=== PATIENT | female | born 1945 | race Asian ===

== ENCOUNTER 2020-10-04 08:52 | Outpatient (CLI) | payer MEDICARE, SELFPAY ==
--- NOTE | ~2020-10-04 | MM_ITS ---
EXAMINATION: MM screening estee BI w lawrence HISTORY: Screening TECHNIQUE: Craniocaudal and mediolateral oblique 3-D tomosynthesis images were obtained and synthetic 2-D images were generated. CAD analysis was submitted and interpreted. COMPARISON: Comparison to multiple prior studies sequentially, with oldest reviewed study dated 04/19. BREAST PARENCHYMAL COMPOSITION: There are scattered areas of fibroglandular density. FINDINGS: Tissue marker present in the upper medial aspect of the right breast consistent with interv al biopsy. There is no evidence of suspicious mass, calcification, or architectural distortion to sug gest malignancy in either breast. There has been no suspicious interval change. IMPRESSION: 1. No mammographic evidence of malignancy. 2. Recommend routine screening mammography in one year. BI-RADS Category 2: Benign finding(s). Reviewed, dictated and finalized at location A. TENDER
== END 2020-10-04 08:53 | disposition home or self-care (01) ==
LOC: ANHIMG 09:03
PROVIDERS: PCP Emergency Medicine; Visit Provider Emergency Medicine
DX: Z12.31 Encounter for screening mammogram for malignant neoplasm of breast (principal)
CPT/HCPCS: 77063; 77067

== ENCOUNTER → 2022-02-18 12:27 | Outpatient (CLI) | payer MEDICARE, SELFPAY ==
--- NOTE | ~2022-02-18 | XR_ITS ---
EXAMINATION: XR hip BI 2V w AP pelvis DATE: 02/18/2022 12:49 INDICATION: Bilateral hip pain TECHNIQUE: AP view the pelvis and two views of each hip were obtained. COMPARISON: None. FINDINGS: Bone alignment is normal. There is no fracture. There is mild osteoarthritis of the hips. S urgical changes are noted in the rectum. IMPRESSION: 1. Mild osteoarthritis. Reviewed, dictated and finalized at location B. IMPRESSION: 1. Mild osteoarthritis.
== END ==
PROVIDERS: PCP Emergency Medicine; Visit Provider Emergency Medicine
DX: M16.0 Bilateral primary osteoarthritis of hip (principal)
CPT/HCPCS: 73521

== ENCOUNTER 2023-02-19 00:25 | Day surgery (SDC) | payer MEDICARE, SELFPAY ==
[2023-02-05 15:05] VITALS: BMI 24.0
[2023-02-19 10:21] VITALS: BP 139/86; PULSE 86; RESP 18; TEMP 36.4; O2SAT 99; BMI 23.4
[2023-02-19] MEDS: LACTATED RINGERS 1,000 ML 150 ML IV CONT (10:33)
--- NOTE | 2023-02-19 10:43 | WPDANESEPPF ---
Anes - Initial Pre Proc Eval Procedure: Operation Date: 02/19/23 11:30 Proposed Procedures p Colonoscopy - Too Rudd MD Date/Time: 02/19/23 10:43 Surgeon: Too Rudd MD Pre Op Diagnosis: IBS-diarrhea Patient Data Age: 77 Gender: F Height: 1.57 m Weight: 58.2 kg Last Vital Signs Temp 97.5 F L 02/19/23 10:21 Pulse 86 02/19/23 10:21 Resp 18 02/19/23 10:21 BP 139/86 02/19/23 10:21 Pulse Ox 99 02/19/23 10:21 O2 Del Method Room Air 02/19/23 10:21 Allergies Allergy/AdvReac Type Severity Reaction Status Date / Time No Known Drug Allergies Allergy Unknown Other Verified 02/19/23 10:20 Home Medications Medication Instructions Recorded Confirmed Type ergocalciferol (vitamin D2) 1,250 1,250 mcg PO WEEKLY 02/05/23 02/19/23 History mcg (50,000 unit) capsule losartan 100 mg tablet 100 mg PO DAILY 02/05/23 02/19/23 History simvastatin 10 mg tablet 10 mg PO DAILY 02/05/23 02/19/23 History Patient hx anesthesia problems: none Family hx anesthesia problems: none Results Review: All pre-operative results and documents have been reviewed as part of the pre-operative evaluation. [facility] Social History Social History Living arrangements: alone Anes - Eval Final PreProcedure Day of Procedure 02/19/23 10:43 Patient weight: normal Heart: regular rate and rhythm Lungs: clear to auscultation Airway: Mallampati scale class II Neurological: alert and oriented Last oral intake: >/= 8 hours ASA classification: III Emergent: no Anesthetic plan: proceed Anesthesia type and monitoring: general GIVS and standard monitoring Results Review: All pre-operative results and documents have been reviewed as part of the pre-operative evaluation. Informed Consent: The patient's anesthetic plan and its attendant risks and benefits were discussed with the patient/family/POA. Questions were solicited and answers provided to the satisfaction of the patient/family/POA.
--- NOTE | 2023-02-19 11:31 | PM.HPGS ---
History of Present Illness History of Present Illness Consent: Risks, benefits, and alternatives have been discussed and questions answered. Patient agrees to proceed with procedure. Chief complaint: IBS-diarrhea Narrative: Skyler Tao is a 77 year old female with rectal cance in 1994 s/p surgery, last colonoscopy 3 years ago. She has ibs-d but not taking any medication and recently better. Review of Systems Constitutional: Constitutional: Denies headache(s) and Denies weakness Eyes: Eyes: Denies blurry vision ENT: Reports Normal hearing present, Denies headache(s) and Denies neck pain Cardiovascular: Cardiovascular: Denies chest pain and Denies dyspnea Respiratory: Respiratory: Denies dyspnea Gastrointestinal: Gastrointestinal: Reports no additional gastrointestinal complaints Genitourinary: Genitourinary: Denies dysuria Musculoskeletal: Musculoskeletal: Denies neck pain Integumentary/Breasts: Skin/Breast: Denies dry skin Neurologic: Reports Normal hearing present, Denies headache(s) and Denies weakness Psychiatric: Psychiatric: Denies anxiety Endocrine: Endocrine: Denies change in body appearance Hematologic/Lymphatic: Hematologic/Lymphatic: Denies easy bleeding Allergic/Immunologic: Allergic/Immunologic: Denies urticaria PMFSH Past Medical History Medical History (Updated 02/19/23 @ 11:33 by Too Rudd MD) History of rectal cancer Irritable bowel syndrome with diarrhea Social History Social History Living arrangements: alone Meds Home Medications and Allergies Home Medications Medication Instructions Recorded Confirmed Type ergocalciferol (vitamin D2) 1,250 1,250 mcg PO WEEKLY 02/05/23 02/19/23 History mcg (50,000 unit) capsule losartan 100 mg tablet 100 mg PO DAILY 02/05/23 02/19/23 History simvastatin 10 mg tablet 10 mg PO DAILY 02/05/23 02/19/23 History Allergies Allergy/AdvReac Type Severity Reaction Status Date / Time No Known Drug Allergies Allergy Unknown Other Verified 02/19/23 10:20 Vital Signs Vital Signs - 24 hr 02/19/23 10:21 Temperature 97.5 F L Pulse Rate 86 Respiratory Rate 18 Blood Pressure 139/86 Pulse Oximetry 99 Oxygen Delivery Room Air Exam Const: General: comfortable and no acute distress HENMT: Face/Nose/Sinus: Normal nares present Eyes: General: appearance normal, both eyes and all related structures Neck: Neck: no JVD Resp: Auscultation: clear to auscultation bilaterally Cardio: Rate: regular rate Rhythm: regular rhythm GI: Inspection: non-distended GI Palp: Yes Soft to palpation Skin: General skin exam: normal color Neuro: General: gait normal Speech: normal speech Extrem: General: normal to inspection Psych: Mental Status: mental status grossly normal Assessment and Plan Assessment and plan (1) Irritable bowel syndrome with diarrhea: Code(s): K58.0 - Irritable bowel syndrome with diarrhea Status: Acute Assessment and Plan: colonoscopy (2) History of rectal cancer: Code(s): Z85.048 - Personal history of other malignant neoplasm of rectum, rectosigmoid junction, and anus Status: Acute
[2023-02-19 11:48] VITALS: BP 100/60; PULSE 65; RESP 21; O2SAT 98
[2023-02-19 11:58] VITALS: BP 113/69; PULSE 62; RESP 16; O2SAT 98
[2023-02-19 12:08] VITALS: BP 156/89; PULSE 69; RESP 18; O2SAT 100
== END 2023-02-19 12:13 | disposition home or self-care (01) ==
PROVIDERS: PCP Emergency Medicine; Visit Provider Internal Medicine Gastroenterology
PROC: 0DJD8ZZ Inspection of Lower Intestinal Tract, Via Natural or Artificial Opening Endoscopic (ICD-10-PCS; CPT 45378; principal; 2023-02-19 11:30)
DX: K58.0 Irritable bowel syndrome with diarrhea (principal); D12.2 Benign neoplasm of ascending colon; Z90.49 Acquired absence of other specified parts of digestive tract; Z98.0 Intestinal bypass and anastomosis status; Z85.048 Personal history of other malignant neoplasm of rectum, rectosigmoid junction, and anus
CPT/HCPCS: 45385; 45380; 88305; J2704; J7120

== ENCOUNTER 2025-10-13 07:42 | Outpatient (CLI) | payer MEDICARE, SELFPAY ==
--- NOTE | ~2025-10-13 | MM_ITS ---
EXAMINATION: MM screening estee BI w lawrence HISTORY: Screening TECHNIQUE: Craniocaudal and mediolateral oblique 3-D tomosynthesis images were obtained and synthetic 2-D images were generated. CAD analysis was submitted and interpreted. COMPARISON: Comparison to multiple prior studies sequentially, with oldest reviewed study dated 05/02/2016. BREAST PARENCHYMAL COMPOSITION: Not dense: There are scattered areas of fibroglandular density. FINDINGS: There are benign right breast masses which are stable. There is no evidence of suspicious mass, calcification, or architectural distortion to suggest malignancy in either breast. There has been no suspicious interval change. IMPRESSION: 1. No mammographic evidence of malignancy. 2. Recommend routine screening mammography in one year. Reviewed, dictated and finalized at location B. [employer]
--- NOTE | ~2025-10-13 | DEXA_ITS ---
Bone Density Report Name: JOSEFA GODINEZ Age: 79 Sex: Female Ethnicity: Date of : 1945 Indication: postmenopausal; screening for osteoporosis; parental hip fracture; cancer; hysterectomy; Referring Provider: [facility] WAITE Study: Bone densitometry was performed. Exam Date: October 13, 2025 Accession number: [id number] Bone Density: Region BMD T-score Z-score Classification AP Spine(L1-L4) 0.938 -1.0 1.6 Normal Femoral Neck (Left) 0.630 -2.0 0.3 Osteopenia Total Hip (Left) 0.815 -1.0 1.0 Normal Femoral Neck (Right) 0.600 -2.2 0.0 Osteopenia Total Hip (Right) 0.776 -1.4 0.6 Osteopenia Total Hip Mean 0.795 -1.2 0.8 Osteopenia World Health Organization criteria for BMD impression classify patients as: Normal (T-score at or above -1.0), Osteopenia (T-score between -1.0 and -2.5), or Osteoporosis (T-score at or below -2.5). Previous Exams: Region Exam Age BMD T-score BMD Change BMD Change Date g/cm2 vs Baseline vs Previous AP Spine (L1-L4) 10/13/2025 79 0.938 -1.0 -0.021 (-2.2%) -0.021 (-2.2%) 04/13/2013 67 0.958 -0.8 Total Hip(Left) 10/13/2025 79 0.815 -1.0 -0.007 (-0.8%) 0.000 (0.0%) 06/14/2019 73 0.815 -1.0 -0.006 (-0.8%) -0.001 (-0.2%) 05/02/2017 71 0.817 -1.0 -0.005 (-0.6%) -0.008 (-1.0%) 04/19/2015 69 0.824 -1.0 0.003 (0.4%)# 0.003 (0.4%)# 04/13/2013 67 0.822 -1.0 Total Hip(Right) 10/13/2025 79 0.776 -1.4 -0.062 (-7.4%) -0.064 (-7.6%) 06/14/2019 73 0.840 -0.8 0.001 (0.2%)# -0.021 (-2.4%) 05/02/2017 71 0.860 -0.7 0.022 (2.7%)# 0.018 (2.2%) 04/19/2015 69 0.842 -0.8 0.004 (0.5%)# 0.004 (0.5%)# 04/13/2013 67 0.838 -0.9 *Denotes significance at 95% confidence level, LSC for AP Spine = 0.022 g/cm2, LSC for Total Hip = 0.027 g/cm2 # Denotes dissimilar scan types or analysis methods Clinical Information Provided by Patient: Parent has had a hip fracture Has used the following medications: Calcium Has the following medical conditions: Cancer, Hysterectomy Patient maximum height was 62 Menopause Age: 49 No regular weight bearing exercise Drinks caffeinated beverages Onset of menses at age 14 Number of children 2 Impression: The patient has low bone mass, based on the Right Femoral Neck T-score. The patient has risk factors, including: parental hip fracture. The BMD for the Total Hip(Right) decreased, changing by -7.6% since the last DXA exam. Discussion: BONE DENSITY IS LOW AT ONE OR MORE SKELETAL SITES. This patient's lowest T-score is low at one or more skeletal sites. It meets the World Health Organization's (WHO) criteria for ?low bone mass? (T-score between -1.0 and -2.5). The patient's 10-year risk of fracture as calculated by FRAX is less than the threshold where pharmacological therapy is recommended by the National Osteoporosis Foundation (NOF). However, all treatment decisions require clinical judgment and consideration of individual patient factors, including patient preferences, comorbidities, previous drug use, risk factors not captured in the FRAX model (e.g., frailty, falls, vitamin D deficiency, increased bone turnover, interval significant decline in bone density) and possible under or overestimation of fracture risk by FRAX. The patient should follow a healthful lifestyle (good nutrition with adequate calcium and vitamin D, and appropriate weight-bearing exercise). Follow-Up: Consider repeating this study in 2 years to reassess this patient's status, or sooner if there is some new clinical indication. Reported by: LANDRY on 10/13/2025 8:41:00 AM. Reviewed, dictated and finalized at location A.
--- OUTSIDE RECORDS SUMMARY | 2025-10-13 07:49 | XMS_ITS | Clinical Summary ---
Author Organization [facility] Address [address] [place] [id number] Care Team Providers Care Casing In Line Feeder Name Role Phone Unavailable Primary Care Provider Unavailabl e Social History Tobacco Use Types Packs/Day Years Used Date Smoking Tobacco: Never Assessed Comments Unknown Sex and Gender Information Value Date Recorded Sex Assigned at Not on file Legal Sex Female 8:13 AM CDT Gender Identity Not on file Sexual Orientation Not on file Plan of Treatment Health Maintenance Due Date Last Done Comments Hepatitis C 1963 DTaP, Tdap and Td Vaccines ( 1 - Tdap) 1965 Pneumococcal Vaccine: 50+ Ye ars (1 of 1 - PCV) 1996 Zoster Vaccines (1 of 2) 1996 Dexa Scan (General) 2011 RSV Immunization or 60+ Years (1 - 1-dose 75+ series) 2021 COVID-19 Vaccine ( - 2024-2 6 season) 2025 Influenza Adult (#1) 2025 Hepatitis A Vaccines Aged Out No long er eligible based on patient's age to complete this topic Meningococcal B Vaccine Aged Out No l onger eligible based on patient's age to complete this topic Meningococcal Vaccine Aged Out No antoine radha eligible based on patient's age to complete this topic RSV Immunizations Under 20 Months Aged Out No longer eligible based on patient's age to complete this topic
--- OUTSIDE RECORDS SUMMARY | 2025-10-13 07:49 | XMS_ITS ---
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 Pseudophakia of both eyes 07/16/2021 Overview (03/07/2025): 07/16/2021- Extraction Cataract - Phacoemulsification And Lens Implant Left Eye - Left Aim computer/standard 03/07/2025- Extraction Cataract - Phacoemulsification And Lens Implant Right Eye - Right DIB00 of power 16.5D AIM: -2.50 Assessment & Plan (03/22/2025 4:16 PM CDT): 07/16/2021- Extraction Cataract - Phacoemulsification And Lens Implant Left Eye - Left Aim computer/standard Status-post Extraction Cataract - Phacoemulsification And Lens Implant Right Eye - Right 03/07/2025 Best corrected vision is much improved and the patient is pleased with results. The eye is well-healed with no evidence of infection. Plan discontinue ocuflox and taper prednisione TID (3) x 1 week, BID (2) x 1 week , then daily x 1week, then discontinue . Call if any inflammation increases or other symptoms worsen or occur. Glasses prescription was offered/given for use as needed. The patient was instructed to contact us if any new concerns occur with this eye. Assessment & Plan (03/08/2025 7:53 AM CDT): 07/16/2021- Extraction Cataract - Phacoemulsification And Lens Implant Left Eye - Left Aim computer/standard Post op day 1s/p Extraction Cataract - Phacoemulsification And Lens Implant Right Eye - Right 03/07/2025 DIB00 of power 16.5D AIM: -2.50 No complaints; Doing well Use ofloxacin and prednisolone to operative eye QID; ok to stop antibiotic drop after 1 week Eye shield at bedtime, glasses or shield during the day PO instructions given RTC as scheduled, earlier if any complaints or concerns Assessment & Plan (03/02/2024 10:14 AM CDT): 07/16/2021- Extraction Cataract - Phacoemulsification And Lens Implant Left Eye - Left Aim computer/standard/ -1.25 Implants in good position. Vision stable PCO not vis sig Assessment & Plan (08/26/2023 10:18 AM CDT): 07/16/2021- Extraction Cataract - Phacoemulsification And Lens Implant Left Eye - Left Aim computer/standard/ -1.25 Implants in good position. Vision stable PCO not vis sig Assessment & Plan (02/04/2023 8:09 AM ORDER ENTRY CLERK): 07/16/2021- Extraction Cataract - Phacoemulsification And Lens Implant Left Eye - Left Aim computer/standard/ -1.25 Implants in good position. Vision stable PCO not vis sig Assessment & Plan (07/30/2022 10:01 AM CDT): 07/16/2021- Extraction Cataract - Phacoemulsification And Lens Implant Left Eye - Left Aim computer/standard/ -1.25 Implants in good position. Vision stable PCO not vis sig Assessment & Plan (07/24/2021 11:04 AM CDT): Status-post Extraction Cataract - Phacoemulsification And Lens Implant Left Eye - Left 07/16/2021- aim -1.25 Best corrected vision is much improved and the patient is pleased with results. The eye is well-healed with no evidence of infection. Plan discontinue ocuflox and taper prednisione TID (3) x 1 week, BID (2) x 1 week , then daily x 1week, then discontinue . Call if any inflammation increases or other symptoms worsen or occur. Glasses prescription was offered/given for use as needed. The patient was instructed to contact us if any new concerns occur with this eye. Assessment & Plan (07/16/2021 12:00 PM CDT): Post op day 1s/p Extraction Cataract - Phacoemulsification And Lens Implant Left Eye - Left 07/16/2021 No complaints; Doing well Use ofloxacin and prednisolone to operative eye QID Eye shield at bedtime, glasses or shield during the day PO instructions given RTC 1-2 weeks, earlier if any complaints or concerns Renal cell carcinoma of right kidney 10/13/2019 Assessment & Plan (10/14/2019 9:16 AM ORDER ENTRY CLERK): S/p right cryoablation. She previously underwent left renal cryoablation for a mass in May 2019. Mild pain in right flank procedure site and nausea, tolerable per patient. Clear for discharge per IR and urology. -rx for zofran at discharge. -patient able to tolerate 50% of breakfast. -labs stable Assessment & Plan (10/13/2019 6:19 PM ORDER ENTRY CLERK): S/p right cryoablation. She previously underwent left renal cryoablation for a mass in May 2019. Per VIR, small retroperitoneal hematoma s/o cryoablation, hemodynamically stable. Post procedure management -prn oxy, dilaudid for breakthrough -zofran for nausea -adat -cbc, bmp History of reduction of orbital fracture 019 Overview (03/02/2024): Last Surgical Procedure: Endoscopic Sinus Surgery With Navigation - Left, Repair Orbital Fracture - Left, and Insertion Lumbar Drain 08/24/2019 After brain tumor removal With cerebrospinal fluid (CSF) leak - Pcuster (also fixed eyelid) Stable. No diplopia Assessment & Plan (03/02/2024 11:04 AM CDT): After brain tumor removal With cerebrospinal fluid (CSF) leak - Pcuster (also fixed eyelid) Stable. No diplopia Last Surgical Procedure: Endoscopic Sinus Surgery With Navigation - Left, Repair Orbital Fracture - Left, and Insertion Lumbar Drain 08/24/2019 Assessment & Plan (08/26/2023 11:02 AM CDT): With cerebrospinal fluid (CSF) leak - Pcuster Stable. 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 Follows with Home Leblanc MD, Otolaryngology -patient with unsteady gait, reports mild at baseline. -chronic intermittent headache, prn tylenol -good outpatient follow up. 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 Follows with Home Leblanc MD, Otolaryngology -patient with unsteady gait, reports mild at baseline. -chronic intermittent headache, prn tylenol CSF rhinorrhea 06/18/2019 Assessment & Plan (05/05/2020 2:17 PM CDT): Rhinorrhea continues to improve. Symptoms in May do not seem to represent [employer] infection, especially since they improved spontaneously and without antibiotics. -return to clinic 6 months Assessment & Plan (10/05/2019 9:24 AM ORDER ENTRY CLERK): She is status post endoscopic repair by Dr. Scott on 08/24/19 with significant improvement of left-sided rhinorrhea. The patient is up-to-date with strep pneumo vaccines. Although she continues to have left-sided rhinorrhea, she notes significant improvement in the amount of drainage improvement of headaches and double vision. We discussed that in order to repair the residual CSF leak, she would likely need further transmastoid surgery to repair the leak. As she is doing better and has significant stressors at home which include recent diagnosis of kidney cancer, we will defer any intervention at this time. She will call if any change in symptoms. Follow up in 6 months. Assessment & Plan (06/18/2019 11:05 AM CDT): She appears to have a left ethmoid region CSF leak. I will refer her for evaluation by Dr. Nunez for possible endoscopic repair. I briefly discussed the risks of meningitis and surgical details. Abnormal findings on diagnostic imaging of tong t 06/07/2019 Sensorineural hearing loss, asymmetrical 019 Assessment & Plan (06/01/2019 1:35 PM CDT): Consider amplification. Rhinorrhea 06/01/2019 Assessment & Plan (06/01/2019 1:33 PM CDT): Will have patient collect specimen of fluid to check for beta 2 transferrin- would be unusual to have a leak this long after surgery. Dry eye syndrome of both eyes 08/18/2018 Overview (08/18/2018): From facial palsy secondary for brain tumor 1992/ h/o brow lift with Dr. Blake May 2018 Assessment & Plan (12/14/2024 11:27 AM ORDER ENTRY CLERK): From facial palsy secondary for brain tumor 1993/ h/o brow lift with Dr. Blake May 2018. Recommend increase lubricant eye drops to 4 times/day; consider preservative- free drops, especially if using drops more than that. Add hot compresses with lid scrubs to improve quality of tears. Assessment & Plan (08/26/2023 10:18 AM CDT): From facial palsy secondary for brain tumor 1993/ h/o brow lift with Dr. Blake May 2018. Recommend increase lubricant eye drops to 4 times/day; consider preservative- free drops, especially if using drops more than that. Add hot compresses with lid scrubs to improve quality of tears. Assessment & Plan (05/01/2021 11:02 AM CDT): From facial palsy secondary for brain tumor 1993/ h/o brow lift with Dr. Blake May 2018. Recommend increase lubricant eye drops to 4 times/day; consider preservative- free drops, especially if using drops more than that. Add hot compresses with lid scrubs to improve quality of tears. Assessment & Plan (12/28/2019 10:44 AM ORDER ENTRY CLERK): From facial palsy secondary for brain tumor 1993/ h/o brow lift with Dr. Blake May 2018. Recommend increase lubricant eye drops to 4 times/day; consider preservative- free drops, especially if using drops more than that. Add hot compresses with lid scrubs to improve quality of tears. Assessment & Plan (08/18/2018 9:24 AM CDT): From facial palsy secondary for brain tumor 1993/ h/o brow lift with Dr. Blake May 2018. Recommend increase lubricant eye drops to 4 times/day; consider preservative- free drops, especially if using drops more than that. Add hot compresses with lid scrubs to improve quality of tears. Glaucoma suspect, both eyes 08/18/2018 Assessment & Plan (03/22/2025 4:20 PM CDT): Note sig cupping right eye (OD)>OS. Likely related to high myopia right eye (OD) vs. left eye (OS). +FHx Note OCT today RNFL appears progressed from 2018, but the CDR thickness map looks generally the same since 2018. No drops yet, but needs to be monitors. Assessment & Plan (12/14/2024 12:02 PM ORDER ENTRY CLERK): Note sig cupping right eye (OD)>OS. Likely related to high myopia right eye (OD) vs. left eye (OS). +Fhx ONOCT stable today Will monitor closely. Has never been on drops. Assessment & Plan (03/02/2024 11:07 AM CDT): Note sig cupping right eye (OD)>OS. Likely related to high myopia right eye (OD) vs. left eye (OS). +FHx Note OCT today RNFL appears progressed from 2018, but the CDR thickness map looks generally the same since 2018. HVF without sign glaucomatous defects today. Intraocular pressure (IOP) back to WNL. Will monitor closely. Has never been on drops. Assessment & Plan (08/26/2023 11:06 AM CDT): Note sig cupping right eye (OD)>OS. Likely related to high myopia right eye (OD) vs. left eye (OS). +FHx Note OCT today RNFL appears progressed from 2018, but the CDR thickness map looks generally the same since 2018. HVF without sign glaucomatous defects prev. Intraocular pressure (IOP) left eye (OS) higher than preferred, but no evidence of glaucomatous disease. Will monitor closely. Consider drops or SLT left eye (OS) if needed. Recheck HVF with next visit. Assessment & Plan (02/04/2023 10:03 AM ORDER ENTRY CLERK): Note sig cupping right eye (OD)>OS. Likely related to high myopia right eye (OD) vs. left eye (OS). +FHx Note OCT today RNFL appears progressed from 2018, but the CDR thickness map looks generally the same since 2018. HVF without sign glaucomatous defects. intraocular pressure (IOP) ok today. Ok to stay off drops. Assessment & Plan (07/30/2022 10:12 AM CDT): Note sig cupping right eye (OD)>OS. Likely related to high myopia right eye (OD) vs. left eye (OS). +FHx Note OCT today RNFL appears progressed from 2018, but the CDR thickness map looks generally the same since 2018. Will monitor closely. Pachs done today. No drops yet, but will plan follow ups 6 months with HVF Assessment & Plan (05/01/2021 11:02 AM CDT): Note sig cupping right eye (OD)>OS. Likely related to high myopia right eye (OD) vs. left eye (OS). However, family history- note baseline OCT and Rodríguez visual field (HVF) testing. Will follow. Plan return with optic nerve OCT Assessment & Plan (12/28/2019 10:46 AM ORDER ENTRY CLERK): Note sig cupping right eye (OD)>OS. Likely related to high myopia right eye (OD) vs. left eye (OS). However, family history- note baseline OCT and Rodríguez visual field (HVF) testing. Will follow. Plan return with optic nerve OCT Assessment & Plan (08/18/2018 9:37 AM CDT): Note sig cupping right eye (OD)>OS. Likely related to high myopia right eye (OD) vs. left eye (OS). However, given family history, would plan baseline OCT and Rodríguez visual field (HVF) testing with the tech only. Will follow. Dermatochalasis of both upper eyelids 12/16/2017 Assessment & Plan (12/14/2024 12:02 PM ORDER ENTRY CLERK): Will want to return to [facility], but will wait until after cataract extraction (CE) right eye (OD). Assessment & Plan (03/02/2024 11:08 AM CDT): Noted left eye (OS)>right eye (OD). Pt without issues Sig left eye (OS) but also with facial palsy Assessment & Plan (02/04/2023 10:02 AM ORDER ENTRY CLERK): Sig left eye (OS)>>OD Suspect inferior skin excess and entropian is causing intermittent trichiasis which may be causing intermittent blur. Will try thicker ointment at night if needed. Offer return to [facility], but pt wants to wait for now. Assessment & Plan (07/30/2022 8:18 AM CDT): Wants to referral to [facility] for repeat eval now cataract extraction (CE) healed. Assessment & Plan (07/24/2021 11:07 AM CDT): Wants to referral to [facility] for repeat eval now cataract extraction (CE) healed. Assessment & Plan (05/01/2021 1:00 PM CDT): Noted sig left eye (OS)>OD. Will consider referral to [facility] again after cataract extraction (CE). 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 Still noted left eye (OS)>OD. Feels left eye (OS) has gotten worse and interested in seeing Dr. Blake again. Assessment & Plan (02/04/2023 8:09 AM ORDER ENTRY CLERK): left brow ptosis repair on 02/03/2018- [facility]. Still noted left eye (OS)>OD. Chronic and unchanged. Released from [facility] Assessment & Plan (07/30/2022 10:00 AM CDT): left brow ptosis repair on 02/03/2018- [facility]. Still noted left eye (OS)>OD. Chronic and unchanged. Released from [facility] Facial paresis 03/29/2015 Sinusitis 03/29/2015 Microscopic hematuria 04/07/2014 Microscopic hematuria 04/07/2014 Overview (02/18/2025): MICROSCOPIC HEMATURIA;Recorded Elsewhere: No Location: [facility] Source: EHR Chronic: N Practice ID: [id number] Billable Time: 08:30:00 AM Osteoporosis 04/08/2013 Osteoporosis 04/08/2013 Overview (02/18/2025): Osteoporosis;Recorded Elsewhere: No Location: [facility] Source: EHR Chronic: N Practice ID: [id number] Billable Time: 09:00:00 AM Pain of hand 10/12/2012 Current Treatment and Therapy Plans No current plan information found. Past Treatment and Therapy Plans No past plan information found. Lifetime Dose Tracking * Chemical Lifetime Dose Automatic Entry Manual Entr y DLP 8,988 mGycm 8,988 mGycm 0 mGycm Resolved Problems Problem Noted Date Diagnosed Date Resolved Date Combined forms of age-relate d cataract of right eye 01/05/2025 03/07/2025 Diplopia 07/16/2019 03/02/2024 Overview (07/30/2022): Endoscopic Sinus Surgery With Navigation - Left, Repair Orbital Fracture - Left, and Insertion Lumbar Drain 08/24/2019 For left orbital fracture repair and repair of cerebrospinal fluid (CSF) leak Original traumas from falls--> 30 yrs ago and 9 ago (in 2021) Assessment & Plan (02/04/2023 10:01 AM ORDER ENTRY CLERK): Endoscopic Sinus Surgery With Navigation - Left, Repair Orbital Fracture - Left, and Insertion Lumbar Drain 08/24/2019 For left orbital fracture repair and repair of cerebrospinal fluid (CSF) leak Still feels left side is sensitive chronically and is managing it ok. Assessment & Plan (07/30/2022 9:56 AM CDT): Endoscopic Sinus Surgery With Navigation - Left, Repair Orbital Fracture - Left, and Insertion Lumbar Drain 08/24/2019 For left orbital fracture repair and repair of cerebrospinal fluid (CSF) leak Still feels left side is sensitive chronically and is managing it ok. Assessment & Plan (07/24/2021 11:05 AM CDT): No complaints of diplopia now Assessment & Plan (05/01/2021 1:01 PM CDT): Comes and goes/ chronic and unchanged History of reduction of orbital fracture 07/16/2019 08/26/2023 Combined form of age-related cataract, right eye 08/18/2018 03/07/2025 Assessment & Plan (12/14/2024 12:01 PM ORDER ENTRY CLERK): Patient complains of significant symptoms and problems with activities of daily living due to visually significant disease. R/B/A of cataract surgery discussed with the patient including bleeding, infection, chronic inflammation, need for glasses and/or second surgery, loss of vision, loss of eye, and even very rarely, . Patient's questions were answered and wants to proceed with cataract extraction with intraocular lens implant. Pamphlet given and plans were made to schedule this elective surgery. Recommend phaco/intraocular lens (IOL) OD. Pre-op drops: ofloxacin. Post op drops: Prednisiolone Pre-op pre-operative testing needed: Ascan/automated topography/manual or auto K's. Aim: -2.50 (reads without correction (sc) glasses) Notes: Singh/ ERUM Assessment & Plan (03/02/2024 11:11 AM CDT): Getting closer to vis sig. Do not recommend surgery at this time. Continue to monitor. Patient to call if problems with activities of daily living. Seems to tolerate anisometropia well. Call if concers. Assessment & Plan (08/26/2023 11:06 AM CDT): Getting closer to vis sig. Do not recommend surgery at this time. Continue to monitor. Patient to call if problems with activities of daily living. Assessment & Plan (02/04/2023 10:02 AM ORDER ENTRY CLERK): Not visually significant. Do not recommend surgery at this time. Continue to monitor. Patient to call if problems with activities of daily living. Assessment & Plan (07/30/2022 8:17 AM CDT): Not visually significant. Do not recommend surgery at this time. Continue to monitor. Patient to call if problems with activities of daily living. Brochure offered/given. Assessment & Plan (07/24/2021 11:05 AM CDT): Not visually significant. Do not recommend surgery at this time. Continue to monitor. Patient to call if problems with activities of daily living. Brochure offered/given. Assessment & Plan (05/01/2021 1:05 PM CDT): Patient complains of significant symptoms and problems with activities of daily living due to visually significant disease. R/B/A of cataract surgery discussed with the patient including bleeding, infection, chronic inflammation, need for glasses and/or second surgery, loss of vision, loss of eye, and even very rarely, . Patient's questions were answered and wants to proceed with cataract extraction with intraocular lens implant. Pamphlet given and plans were made to schedule this elective surgery. Rec phaco/IOL left eye (OS)- Aim Valentine/standard. Note was 20/25- at last visit. Note: 15min; intraocular lens (IOL)/sidra/mank/ ofloxacin Assessment & Plan (12/28/2019 10:45 AM ORDER ENTRY CLERK): Not visually significant. Do not recommend surgery at this time. Continue to monitor. Patient to call if problems with activities of daily living. Brochure offered/given. Assessment & Plan (08/18/2018 9:33 AM CDT): Not visually significant. Do not recommend surgery at this time. Continue to monitor. Patient to call if problems with activities of daily living. Brochure offered/given. 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 Questions answered and patient decided to proceed. Epilated offending lashes without difficulty. Suspect that the eyelash was turned in backwards into eyelid. May not recur. Peripheral visual field defect 10/01/2016 07/30/2022
--- OUTSIDE RECORDS SUMMARY | 2025-10-13 07:49 | XMS_ITS | Encounter Summary ---
Author Organization [facility] Address [address] [place] [address] Phone Care Team Providers Care Manufacturing Business Analyst Name Role Phone Domenico Lamb MD Primary Care Provider Patricia Dumont MD Unavailable [phone] Rashmi Thacker MD Unavailable [phone] Milan Scott MD Unavailable [phone] Encounter Details Date Type Department Care Team (Late st Contact Info) Description 03/03/2020 Telephone [facility] Oncology [address] [facility] 7[address] [place] [address] [place] [address] Kelin Martinez Social History Tobacco Use Types Packs/Day Years Used Date Smoking Tobacco: Never Smokeless Tobacco: Never Alcohol Use Standard Drinks/Week Comments Never 0 (1 standard drink = 0.6 oz pur e alcohol) AUDIT-C Answer Date Recorded Frequency of Alcohol Consumption Never 05/12/2019 Average Number of Drinks Not on file 019 Frequency of Binge Drinking Not on file 05/01 Comments No Sex and Gender Information Value Date Recorded Sex Assigned at Not on file Legal Sex Female 12:00 AM CELL TENDER Gender Identity Female 04/25/2021 4:44 PM CDT Sexual Orientation Choose not to disclose 2020 12:16 PM CDT documented as of this encounter Plan of Treatment Not on file documented as of this encounter Visit Diagnoses Not on filedocumented in this encounter Care Teams Manufacturing Business Analyst Relationship Specialty Start Date End Date Domenico Lamb MD [address] [place] [address] PCP - General 05/06/19 Patricia Dumont MD [address] [place] [address] Referring Physician Family Medicine 05/13/19 Rashmi Thacker MD [address] [place] [address] Surgeon Ophthalmology 08/27/21 Milan Scott MD [address] [place] [address] Consulting Physician Otolaryngology 08/27/21 documented as of this encounter
--- OUTSIDE RECORDS SUMMARY | 2025-10-13 07:49 | XMS_ITS | Clinical Summary ---
Author Organization [facility] Address [address] [place] [id number] Care Team Providers Care Gasoline Finisher Name Role Phone Domenico Lamb MD Primary Care Provider Patricia Dumont MD Unavailable [phone] Rashmi Thacker MD Unavailable [phone] Milan Scott MD Unavailable [phone] Allergies No known active allergies Medications ergocalciferol (VITAMIN D) 50,000 unit capsuleIndicatio ns:Vitamin D Deficiency Take 1 capsule (50,000 Units total) by mouth every 14 (fourteen) days Every other Friday 3 Active irbesartan-hydro CHLOROthiazide (AVALIDE) 300-12.5 mg per tabletIndication s:hypertension Take 1 tablet by mouth every morning 3 Active rosuvastatin (Crestor) 10 mg tabletIndication s:hyperlipidemia Take 1 tablet (10 mg total) by mouth daily after lunch 3 Active ciclopirox (PENLAC) 8 % solutionIndicati ons: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 Apply 1 Application topically 4 (four) times a day 5 Active cyanocobalamin (Vitamin B-12) 1,000 mcg tabletIndication s:Prevention of Vitamin B12 Deficiency Take 1 tablet (1,000 mcg total) by mouth every other day At noon; on odd days Active magnesium oxide 400 mg magnesium capsuleIndicatio ns:supplement Take 1 tablet by mouth every other day Every other day, on even days Active Active Problems Problem Noted Date Diagnosed Date [...] sig Assessment & Plan (02/04/2023 8:09 AM PNEUMATIC HOIST OPERATOR): 07/16/2021- Extraction Cataract - Phacoemulsification And Lens [...] 10/13/2019 Assessment & Plan (10/14/2019 9:16 AM PNEUMATIC HOIST OPERATOR): S/p right cryoablation. She previously underwent left renal cryoablation for a mass in May 2019. Mild pain in right flank procedure site and nausea, tolerable per patient. Clear for discharge per IR and urology. -rx for zofran at discharge. -patient able to tolerate 50% of breakfast. -labs stable Assessment & Plan (10/13/2019 6:19 PM PNEUMATIC HOIST OPERATOR): S/p right cryoablation. 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 Follows with Home Leblanc MD, Otolaryngology -patient with unsteady gait, reports mild at baseline. -chronic intermittent headache, prn tylenol -good outpatient follow up. 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 Follows with Home Leblanc MD, Otolaryngology -patient with unsteady gait, reports mild at baseline. -chronic intermittent headache, prn tylenol CSF rhinorrhea 06/18/2019 Assessment & Plan (05/05/2020 2:17 PM CDT): Rhinorrhea continues to improve. Symptoms in May do not seem to represent BARMAN infection, especially since they improved spontaneously and without antibiotics. -return to clinic 6 months Assessment & Plan (10/05/2019 9:24 AM PNEUMATIC HOIST OPERATOR): She is status post endoscopic repair by [...] 2018 Assessment & Plan (12/14/2024 11:27 AM PNEUMATIC HOIST OPERATOR): From facial palsy secondary for brain tumor [...] tears. Assessment & Plan (12/28/2019 10:44 AM PNEUMATIC HOIST OPERATOR): From facial palsy secondary for brain tumor [...] monitors. Assessment & Plan (12/14/2024 12:02 PM PNEUMATIC HOIST OPERATOR): Note sig cupping right eye (OD)>OS. Likely [...] visit. Assessment & Plan (02/04/2023 10:03 AM PNEUMATIC HOIST OPERATOR): Note sig cupping right eye (OD)>OS. Likely [...] OCT Assessment & Plan (12/28/2019 10:46 AM PNEUMATIC HOIST OPERATOR): Note sig cupping right eye (OD)>OS. Likely [...] 12/16/2017 Assessment & Plan (12/14/2024 12:02 PM PNEUMATIC HOIST OPERATOR): Will want to return to [place], but will wait until after cataract extraction (CE) right eye (OD). Assessment & Plan (03/02/2024 11:08 AM CDT): Noted left eye (OS)>right eye (OD). Pt without issues Sig left eye (OS) but also with facial palsy Assessment & Plan (02/04/2023 10:02 AM PNEUMATIC HOIST OPERATOR): Sig left eye (OS)>>OD Suspect inferior skin excess and entropian is causing intermittent trichiasis which may be causing intermittent blur. Will try thicker ointment at night if needed. Offer return to [facility], but pt wants to wait for now. Assessment & Plan (07/30/2022 8:18 AM CDT): Wants to referral to [facility] for repeat eval now cataract extraction (CE) healed. Assessment & Plan (07/24/2021 11:07 AM CDT): Wants to referral to [facility] for repeat eval now cataract extraction (CE) healed. Assessment & Plan (05/01/2021 1:00 PM CDT): Noted sig left eye (OS)>OD. Will consider referral to [facility] again after cataract extraction (CE). 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 Still noted left eye (OS)>OD. Feels left eye (OS) has gotten worse and interested in seeing Dr. Blake again. Assessment & Plan (02/04/2023 8:09 AM PNEUMATIC HOIST OPERATOR): left brow ptosis repair on 02/03/2018- [facility]. Still noted left eye (OS)>OD. Chronic and unchanged. Released from [facility] Assessment & Plan (07/30/2022 10:00 AM CDT): left brow ptosis repair on 02/03/2018- [facility]. Still noted left eye (OS)>OD. Chronic and unchanged. 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/29/2015 Sinusitis 03/29/2015 Microscopic hematuria 04/07/2014 Microscopic hematuria 04/07/2014 Overview (02/18/2025): MICROSCOPIC HEMATURIA;Recorded Elsewhere: No Location: [facility] Source: EHR Chronic: N Practice ID: [id number] Billable Time: 08:30:00 AM Osteoporosis 04/08/2013 Osteoporosis 04/08/2013 Overview (02/18/2025): Osteoporosis;Recorded Elsewhere: No Location: [facility] Source: EHR Chronic: N Practice ID: [id number] Billable Time: 09:00:00 AM Pain of hand 10/12/2012 Resolved Problems Problem Noted Date Diagnosed Date [...] 2021) Assessment & Plan (02/04/2023 10:01 AM PNEUMATIC HOIST OPERATOR): Endoscopic Sinus Surgery With Navigation - Left, [...] 03/07/2025 Assessment & Plan (12/14/2024 12:01 PM PNEUMATIC HOIST OPERATOR): Patient complains of significant symptoms and problems [...] -2.50 (reads without correction (sc) glasses) Notes: 30/ SUGARRUSH Assessment & Plan (03/02/2024 11:11 AM CDT): [...] living. Assessment & Plan (02/04/2023 10:02 AM PNEUMATIC HOIST OPERATOR): Not visually significant. Do not recommend surgery [...] surgery. Rec phaco/IOL left eye (OS)- [facility] [place]/standard. Note was 20/25- at last visit. Note: 15min; intraocular lens (IOL)/sidra/mank/ ofloxacin Assessment & Plan (12/28/2019 10:45 AM PNEUMATIC HOIST OPERATOR): Not visually significant. Do not recommend surgery [...] recur. Peripheral visual field defect 10/01/2016 07/30/2022 Encounters Date Type Department Care Team Description 09/28/2025 Orders Only [facility] Medicine Ophthalmology [facility] [address] [place] [address] Juliana Arias, DEQUAN Encounter for observation for other suspected diseases and conditions ruled out (Primary Dx); Other visual disturbances 08/22/2025 8:00 AM CDT Office Visit [facility] [address] [facility] [address]th [place] [address] Esdras Blake MD Ptosis of left eyebrow (Primary Dx) 08/15/2025 2:49 PM CDT Anesthesia Event [facility] [address] [place] [phone] Tommy Esquivel MD Gardner, Kari Elizabeth, NP 08/15/2025 2:30 PM CDT - 08/15/2025 3:45 PM CDT Surgery [facility] [address] [place] [phone] Esdras Blake MD BROWLIFT 08/15/2025 12:12 PM CDT - 08/15/2025 4:12 PM CDT Hospital Encounter [facility] ([facility]) [address] [place] [phone] Esdras Blake MD Ptosis of left eyebrow [H57.812] (Primary Dx) Discharge Disposition: Discharge to home or self care 08/11/2025 Telephone [facility] Medicine Ophthalmology [address] [place] [phone] Esdras Blake MD 08/09/2025 Telephone [facility] Medicine Ophthalmology [address] [place] [phone] Esdras Blake MD 08/09/2025 Telephone [facility] Medicine Ophthalmology [address] [place] [phone] Esdras Blake MD 08/09/2025 Documentation [facility] Medicine Ophthalmology [address] [place] [phone] Debby Domingo B.A. 08/09/2025 Documentation [facility] [address] [place] [phone] Debby Domingo BAf[place] 08/03/2025 11:00 AM CDT Imaging Exam [facility] Medicine Ophthalmology [address] [place] [phone] 08/03/2025 9:45 AM CDT Office Visit [facility] Medicine Ophthalmology [address] [place] [phone] Esdras Blake MD Ptosis of left eyebrow (Primary Dx) 07/25/2025 9:00 AM CDT Procedure visit [facility] Medicine Otolaryngology [address] [place] [address] 11[address] [place] [address] [place] [address] Carril, Joana Rosita, Au.D. Sensorineural hearing loss, asymmetrical (Primary Dx) from Last 3 Months Immunizations Immunization Administration Dates Next Due Influenza, Quad, Adjuvantate d, Intramuscular 08/25/2020 Influenza, Quadrivalent, Hig h Dose, Preservative Free, Intrr 08/09/2021 Influenza, Quadrivalent, Spl it, Preservative Free, Intramuscular 09/28/2019 Influenza, Trivalent, High D ose, Split, Preservative Free, Intramuscular 09/09/2018,09/08/2018,09/05/2015 Influenza, Unspecified 09/29/2019 Pneumococcal Polysaccharide PPV23 08/20/2013 ZOSTER Recombinant 12/30/2019,10/01/2019 Surgical History Surgery Date Site/Laterality Comments EYE SURGERY 02/03/2018 Left left direct eyebrow lift THYROGLOSSAL DUCT EXCISION 12/01/1991 - 11/30/1992 RECTAL SURGERY 12/01/1994 - 11/30/1995 COLONOSCOPY 12/01/2018 - 11/30/2019 Multiple-- Last 2019 CRYOABLATION RENAL LEFT 05/21/2019 Left BREAST BIOPSY 06/17/2019 Right CRYOABLATION RENAL RIGHT 10/13/2019 Right FUNCTIONAL ENDOSCOPIC SINUS SURGERY 08/24/2019 NEUROMA SURGERY 12/01/1992 - 11/30/1993 Left removal of tumor (neuroma) CATARACT EXTRACTION 07/16/2021 Left CATARACT EXTRACTION EXTRACAPSULAR W/ INTRAOCULAR LENS IMPLANTATION 03/07/2025 Eye/Right Procedure: EXTRACTION CATARACT - PHACOEMULSIFICATION AND LENS IMPLANT RIGHT EYE; Surgeon: Rashmi Thacker MD; Location: [facility] OR POD [facility]; Service: Ophthalmology; Laterality: Right; Medical devices from this surgery are in the Medical Devices section. 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 Thacker Hypertension Dxd 2002 Sinusitis Chronic bronchitis (HCC) HL (hearing loss) Left ear d/t n euroma History of renal cell cancer Dante ateral kidney CA s/p cryoablation 2018 History of rectal cancer Rectal CA dxd 1993 s/p colon resection and radiation Pseudophakia of left eye 07/16/2021 (IOL mo del [id number] of power 19.5D. Serial Number # [id number]) - Dr. Thacker Hx of radiation therapy 1994 Family History Medical History Relation Name Comments Heart disease Brother Emphysema Father Heart disease Father Family history of cardiac disorder - (Added by TW Conv) Hypertension Father Dementia Mother Glaucoma Mother Anesthesia problems Neg Hx Relation Name Status Comments Brother Father Mother Social History Tobacco Use Types Packs/Day Years Used Date Smoking Tobacco: Never Passive Smoke Exposure: Never Smokeless Tobacco: Never Tobacco Cessation:Counseling Given: Not Answered Alcohol Use Standard Drinks/Week Comments Never 0 (1 standard drink = 0.6 oz pur e alcohol) AUDIT-C Answer Date Recorded Q1: How often do you have a drink containing alcohol? Never 08/15/2025 Q2: How many drinks containi ng alcohol do you have on a typical day when you are drinking? Patient does not drink Q3: How often do you have si x or more drinks on one occasion? Never 08/15/2025 Personal Safety Answer Date Recorded Have you ever been in or are you currently in a harmful physical or emotional relationship or is someone making you feel afraid or unsafe? Denies 08/15/2025 Comments No Sex and Gender Information Value Date Recorded Sex Assigned at Not on file Legal Sex Female 12:00 AM PNEUMATIC HOIST OPERATOR Gender Identity Female 04/25/2021 4:44 PM CDT Sexual Orientation Choose not to disclose 2020 12:16 PM CDT Last Filed Vital Signs Vital Sign Reading Time Taken Comments Blood Pressure 134/87 08/15/2025 4:00 PM CDT Pulse 67 08/15/2025 4:00 PM CDT Temperature 36.1 C (97 F) 08/15/2025 4:00 PM CDT Respiratory Rate 13 08/15/2025 4:00 PM CDT Oxygen Saturation 96% 08/15/2025 4:00 PM CDT Inhaled Oxygen Concentration - - Weight 59 kg (130 lb) 08/15/2025 12:40 PM CDT Height 157.5 cm (5' 2.01) 08/15/2025 12:40 PM C DT Body Mass Index 23.77 08/15/2025 12:40 PM CDT Plan of Treatment Health Maintenance Due Date Last Done Comments Depression Screening 1945 Hepatitis C Screening 1945 Osteoporosis Screening-Bone Density Scan 1945 DTaP/Tdap/Td Vaccine (1 - Tdap) 1957 Hepatitis B Screening 1964 Well Visit 65+ 2011 Pneumococcal vaccine 65+ (2 of 2 - PCV) 08/20/2014 08/20/2013 Influenza Vaccine (#1) 2025 , 08/25/2020, 09/29/2019, Additional history exists Fall Risk Assessment 08/15/2026 08/15/2025 Zoster Vaccine Completed 12/30/2019, 10/01/2019 Medical Devices Implanted Type Area Abattoir Supervisor Device Identifier Shelf Expiration Date Model / Serial / Lot [employer] [id number] - [id number] - [id number] Implanted:Qty: 1 on 07/16/2021 by Rashmi Thacker MD at [facility] Advanced Medicine Lens Left: Eye [employer] 11/30/2023 [id number] / [id number] / [employer] Lens Tecnis Eyhance Iol [id number] - [id number] - [id number] Implanted:Qty: 1 on 03/07/2025 by Rashmi Thacker MD at [facility] Advanced [facility] Lens Right: Eye [employer] [id number] 11/11/2026 [id number] / [id number] / [employer] .3mm Preform Orbital Floor Large Plate Bone Titanium Sterile 1.5 - [id number] Implanted:Qty: 1 on 08/24/2019 by Esdras Blake MD at [facility] Orbit [employer] / / [employer] [id number] Biodesign 2.5x2.5cm Cranial Dura Graft Soft Tissue Porcine - [id number] Implanted:Qty: 1 on 08/24/2019 by Esdras Blake MD at [facility] Left: Nose [employer] [id number] 11/01/2020 [id number] / / [id number] Description:2.5cmX2.5cm Duraplasty graft Explanted Type Area Abattoir Supervisor Device Identifier Shelf Expiration Date Model / Serial / Lot Impl Thk.35mm Lg Sq 10x9cm Orbt Nyln Smth Foil Suprafoil Str - [id number] Explanted:Qty: 1 on 08/24/2019 by Esdras Blake MD at [facility] Left: Orbit [employer] 09/13/2019 [id number]-035 / / [id number] Description:Supra Foil Impla nt Code F-[id number]-035 Thickness 0.35mm Type smooth Foil Implanted as temp plate Left eye, removed in the OR. Procedures Procedure Name Priority Date/Time Associated Diagnosis Comments BROWLIFT. 08/15/2025 2:49 PM CDT Ptosis of left eyebrow GVF LIMITED/PTOSIS - OU - BOTH EYES Routine 08/03/2025 11:40 AM CDT Ptosis of left eyebrow from Last 3 Months Results * GVF Limited/Ptosis - OU - Both Eyes (08/03/2025 11:40 AM CDT) Anatomical Region Laterality Modality Head Visual Field Narrative 08/03/2025 5:41 PM CDT Right Eye Fixation was good. Cooperation was good. Reliability was good. Left Eye Fixation was good. Cooperation was good. Reliability was good. Notes There is superior obstruction to 11 OD and 6 OS. The clements improved to 36 OD and 38 OS with manual elevation. Esdras Blake MD OPH VISUAL FIELD Final Res ult from Last 3 Months Insurance T MEDICARE UHC MEDICARE [facility] Address: [address] [address] [place] [address] [employer] MEDICARE A[employer]NA MEDICARE Advance Directives For more information, please contact: [phone] Documents on File Type Date Recorded Patient Readers' Advisory Service Librarian Expl anation ADVANCE DIRECTIVE 07/16/2021 6:21 AM Power of Swing Tender-Medical * Full Code (Latest Code Status on File) Date Activated Date Inactivated Comments 10/13/2019 3:41 PM 10/14/2019 2:46 PM * Full Code Date Activated Date Inactivated Comments 08/24/2019 4:07 PM 08/26/2019 6:56 PM * Full Code Date Activated Date Inactivated Comments 05/21/2019 10:03 AM 05/22/2019 4:01 PM Care Teams Gasoline Finisher Relationship Specialty Start Date End Date Domenico Lamb MD [address] [place] [address] [place] [address] PCP - General 05/06/19 Patricia Dumont MD [address] [place] [address] Referring Physician Family Medicine 05/13/19 Rashmi Thacker MD [address] [place] [address] Surgeon Ophthalmology 08/27/21 Milan Scott MD [address] [place] [address] Consulting Physician Otolaryngology 08/27/21
--- OUTSIDE RECORDS SUMMARY | 2025-10-13 07:49 | XMS_ITS | Data Portability ---
Author Organization [facility] PKevin, [place] Address [address] [place] [address] Assessment Encounter Date Assessment Date Assessment LastModified by Organization Details LastModified Time 11/06/2020 11/06/2020 Annual gynecological exam performed. Patient will come back in a year unless there are new symptoms. [email or web address] Not available 11/06/2020 11:22:04 Plan of Treatment Reminders Order Date Submit Date Provider Last Modified By Organization Details Last Modified Time Details Appointments None recorded. Lab None recorded. Referral None recorded. Procedures None recorded. Surgeries None recorded. Imaging None recorded. Medication Orders raloxifene 60 mg tablet 2019 020 INTERFACE [facility], [address] [place] [address], [address], [phone], 0 11:21:15 Patient TargetsNo targets recorded. Patient InstructionsNo instructions recorded. Reason for Referral None Reported. Problems Name Problem SNOMED Code Status Onset Date Resolution Date Notes Provider Name and Address Organization Details Recorded Time Specializ ed medical examinati on Active 2011 Gynecologi ginger Examinatio n;Recorded Elsewhere: No Locatio n: [facility] Sary rce: EHR Chroni c: N Practice ID: 0001 Billa ble Time: 08:30:00 AM Not Available [facility] 0 17:32:53 Adult health examinati on Active 2011 Routine Medical Exam;Recor ded Elsewhere: No Locatio n: [facility] Sary rce: EHR Chroni c: N Practice ID: 0001 Billa ble Time: 08:30:00 AM Not Available [facility] 0 17:32:53 Osteoporo sis [id number] Active 2012 Osteoporos is;Recorde d Elsewhere: No Locatio n: [facility] rce: EHR Chroni c: N Practice ID: 0001 Billa ble Time: 09:00:00 AM Not Available [facility] 0 17:32:54 Microscop ic hematuria [id number] Active 2013 MICROSCOPI C HEMATURIA; Recorded Elsewhere: No Locatio n: [facility] rce: EHR Chroni c: N Practice ID: 0001 Billa ble Time: 08:30:00 AM Not Available [facility] 0 17:32:53 Screening for malignant neoplasm of rectum Active 2015 Encounter for screening for malignant neoplasm of rectum;Rec orded Elsewhere: No Locatio n: [facility] rce: EHR Chroni c: N Practice ID: 0001 Billa ble Time: 08:30:00 AM Not Available [facility] 0 17:32:[address] Concept Active 2015 Encntr for gynecological assistant exam (general) (routine) w/o abn findings;R ecorded Elsewhere: No Locatio n: [facility] rce: EHR Chroni c: N Practice ID: 0001 Billa ble Time: 08:30:00 AM Not Available [facility] 0 17:32:[address] Concept Active 2015 Encntr for general adult medical exam w/o abnormal findings;R ecorded Elsewhere: No Locatio n: [facility] rce: EHR Chroni c: N Practice ID: 0001 Billa ble Time: 08:30:00 AM Not Available [facility] 0 17:32:54 Screening for malignant neoplasm of cervix Active 2018 Encounter for screening for malignant neoplasm of cervix;Rec orded Elsewhere: No Locatio n: [facility] rce: EHR Chroni c: N Practice ID: 0001 Billa ble Time: 09:30:00 AM Not Available [facility] 0 17:32:53 Evaluatio n finding Active 2018 Oth abn and inconclusi ve findings on dx imaging of breast;Rec orded Elsewhere: No Locatio n: [facility] rce: EHR Chroni c: N Practice ID: 0001 Billyoanna ble Time: 12:48:07 PM Not Available [facility] 0 17:32:53 Problem Notes None recorded. Medical Equipment None Reported. Medications Name Sig Start Date Stop Date Status Note LastModified by Organization Details LastModified Time Prescript ion - Renewal active Not Available Not Available Not Available hydrocodo ne 5 mg-acetam inophen 325 mg tablet 11/06 completed Not Available Not Available Not Available simvastat in 10 mg tablet active Not Available Not Available Not Available losartan 100 mg-hydroc hlorothia zide 25 mg tablet take 1 tablet by oral route every day active Prescrib ed Elsewher e: Yes Loca tion: [facility] odify By: kimberli leach DateTime : 04/07/20 14 08:30:00 AM Not Available Not Available Not Available famotidin e 20 mg tablet 11/06 completed Not Available Not Available Not Available simvastat in 5 mg tablet take 1 tablet by oral route every day in the evening active Prescrib ed Elsewher e: Yes Loca tion: [facility] odify By: mehnaz Franco ntkuldip DateTime : 04/05/20 12 10:06:38 AM Not Available Not Available Not Available losartan 25 mg tablet take 1 tablet by oral route every day 04/08 completed Prescrib ed Elsewher e: Yes Loca tion: [facility] odify By: kimberli leach DateTime : 04/05/20 12 10:06:38 AM Not Available Not Available Not Available raloxifen e 60 mg tablet TAKE 1 TABLET BY MOUTH DAILY active Not Available Not Available No t Available ergocalci ferol (vitamin D2) 1,250 mcg (50,000 unit) capsule TAKE ONE CAPSULE BY MOUTH ONCE PER WEEK active Not Available Not Available No t Available losartan 100 mg tablet active Not Available Not Available Not Available Bactrim DS 800 mg-160 mg tablet take 1 tablet by oral route every 12 hours 05/11 completed Prescrib ed Elsewher e: No Locat ion: [facility] odify By: amkuhl E ncounter DateTime : 04/26/20 10:20:17 AM Not Available Not Available Not Available calcium active Not Available Not Avail able Not Available D3 Plus K2 Dots active Not Available Not Available Not Available GaviLyte- N 420 gram oral solution 11/06 completed Not Available Not Available Not Available Caltrate active Not Available Not Avai lable Not Available Shingrix (PF) 50 mcg/0.5 mL intramusc ular suspensio n, kit PHARMACI ST ADMINIST ERED IMMUNIZA TION ADMINIST ERED AT TIME OF DISPENSI NG 11/06 completed Not Available Not Available Not Available Fluad Quad (65yr up)(PF) 60 mcg (15 mcg x 4)/0.5mL IM syringe 11/06 completed Not Available Not Available Not Available Vitals Date Recorded Body height Body mass index (BMI) Body weight Systolic And Diastolic Provider Name and Address Organization Details Last Updated DateTime 11/06/2020 152.4 cm 25 kg/m2 84677.82 g 140/86 mm[Hg] Kim Murillo [facility] 11/06/2020 11:04:25 Social History None recorded. Functional Status None recorded. Mental Status None recorded. Family History Nothing Reported Notes:Father: Congenital hea rt disease, Hypertension Maternal grandmother: stroke Maternal uncle: Diabetes mellitus Mother: Anemia Medical History No medical history recorded. Gynecological History Statement/Question Response Current Control Method None Obstetrics History GPAL:G 0 P 0 0 0 0 Past Encounters Encounter ID Performer Location Encounter Start Date Encounter Closed Date Diagnosis/Indication Diagnosis SNOMED-CT Code Diagnosis ICD10 Code Diagnosis IMO Codes Diagnosis Note [id number] Jennifer Mace , [facility] [address] [address] 11/06/2020 10:55:02 11/06/2020 11:24:13 Postmenopausal osteopenia [id number] M85.80 Will continue this medication through this year & re-evaluat e need after DEXA in 2020. Dexa 2018 shows some osteopenia present. Has been on Evista since 2011. We discussed that some [place] use of these meds can actually start to have a neg effect down the road if continued for long periods of time; or starts to not be beneficial as a whole. Will evaluate next year. She agrees. RF sent x 1yr Pap/hpv d/c per as[facility]p unless otherwise indicated. UTD colonoscop y/DEXA 2019 Mammo done Time spent in visit is a total of 15 mins with at least 50% of visit consisting of counseling and review of plan of care. Health Concerns Section Related Observation LastModified by Organization Detai ls LastModified Time None Recorded Concern Status LastModified by Organization Details LastModified Time None Recorded Advance Directives Directive None Recorded Payers Insurance Date Sequence Insurance Name Policy Number Policy Gee Covered Member ID Gee Member ID Guarantor Name 11/06/2020 1 [facility] [id number] [address] Tao [id number] Skyler Tao Notes Date Note Type Note Provider Name and Address Organization Details Recorded Time 0 text/html Annual GYNReported by PatientHistoryFor history, patient reportsno gynecologic complaints.Genitourina ry symptomsFor urinary symptoms, patient reportsno hematuriaandno incontinence. For vulva, patient reportsno genital lesion. For vagina, patient reportsnormal vaginal discharge. For menstrual cycle, (postmenopause).Breast symptomsFor breast, patient reportsno breast pain,no breast lump, andno nipple discharge.Endocrine symptomsFor sexual complaints, patient reportsno sexual complaints,no pain during intercourse, andnormal libido. For menopausal symptoms, patient reportsno menopausal symptomsandnormal vaginal lubrication.Psychologi ginger symptomsFor psychological symptoms, patient reportsno depression,no anxiety, andno pmdd.Preventative measuresFor preventive measures, patient reportsencourage self breast examination,encourage regular exercise,encourage no tobacco use,encourage regular mammograms starting age 40,mammogram performed within the past year, andup to date on colonoscopy screening(10/2020 wnl mammo from 10/04.dexa 2019 on evista since end of 2011.). for the last few years. No new parnter & not SA. Jennifer Mace, [facility]- [address], [place], [address], [facility] 11/06/2020 11:24:11 OBGyn Episode No OBEpisode recorded.
--- OUTSIDE RECORDS SUMMARY | 2025-10-13 07:49 | XMS_ITS | Encounter Summary ---
Author Organization [facility] Address [address] [place] [address] Phone Care Team Providers Care Accounts Clerk Name Role Phone Domenico Lamb MD Primary Care Provider [phone] Patricia Dumont MD Unavailable [phone] Rashmi Thacker MD Unavailable Milan Scott MD Unavailable [phone] Encounter Details Date Type Department Care Team (Late st Contact Info) Description 02/18/2025 Telephone [facility] Medicine Radiology, Interventional Radiology [address] [place] [address] Matthew Branch Social History Tobacco Use Types Packs/Day Years Used Date Smoking Tobacco: Never Passive Smoke Exposure: Never Smokeless Tobacco: Never Alcohol Use Standard Drinks/Week Comments Never 0 (1 standard drink = 0.6 oz pur e alcohol) AUDIT-C Answer Date Recorded Q1: How often do you have a drink containing alcohol? Never 02/14/2025 Q2: How many drinks containi ng alcohol do you have on a typical day when you are drinking? Patient does not drink Q3: How often do you have si x or more drinks on one occasion? Never 02/14/2025 Comments No Sex and Gender Information Value Date Recorded Sex Assigned at Not on file Legal Sex Female 12:00 AM PERINATAL NURSE Gender Identity Female 04/25/2021 4:44 PM CDT Sexual Orientation Choose not to disclose 2020 12:16 PM CDT documented as of this encounter Plan of Treatment Not on file documented as of this encounter Visit Diagnoses Not on filedocumented in this encounter Care Teams Accounts Clerk Relationship Specialty Start Date End Date Domenico Lamb MD [address] [place] [address], [place] [id number] PCP - General 05/06/19 Patricia Dumont MD [address] [place] [address] Referring Physician Family Medicine 05/13/19 Rashmi Thacker MD [address] [place] [address] Surgeon Ophthalmology 08/27/21 Milan Scott MD [address] [place] [address] Consulting Physician Otolaryngology 08/27/21 documented as of this encounter
== END 2025-10-13 07:43 | disposition home or self-care (01) ==
LOC: ANHFOHIMG 07:47
PROVIDERS: PCP Family Medicine; Visit Provider Emergency Medicine
DX: Z12.31 Encounter for screening mammogram for malignant neoplasm of breast (principal); Z78.0 Asymptomatic menopausal state; M85.852 Other specified disorders of bone density and structure, left thigh; M85.851 Other specified disorders of bone density and structure, right thigh
CPT/HCPCS: 77063; 77067; 77080